=== PATIENT | male | born 1960 | race Caucasian/White ===

== ENCOUNTER 2017-10-16 19:31 | Emergency (ER) | payer OTHER ==
[~2017-10-16] VITALS: Ht 188 cm; Wt 86.6 kg
[~2017-10-16 19:31] MED LIST: ATIVAN0.5 MG PO; ATIVAN1 MG PO; FOLIC ACID1 MG PO; LEVAQUIN 500 M500 M2 PO; LORAZEPAM 1 MG T1 M1 PO; MAGNESIUM400 MG PO; MAGOX 400400 MG PO; NICODERM CQ1 EAC1 TRANSDERM; NICOTINE TRANSD21 M1 TRANSDERM; NOHOMEMEDICATIONS; OXYCODONE-ACET1 EACH PO; PEPCID20 MG PO; POTASSIUM20 PO; PRENATABS FA T1 EACH PO; PRENATAL PO; PRENATAL VITAM1 EAC5 PO; THIAMINE HCL100 MG PO; TYLENOL325 MG PO; VANCOMYCIN100 MG/ML PO; VITAMIN B-1100 M1 PO
[2017-10-16 20:07] LABS: URINE BILIRUBIN NEGATIVE (Negative); URINE BLOOD 1+ (Negative); URINE CLARITY CLEAR; URINE COLOR YELLOW; URINE GLUCOSE-RANDOM NEGATIVE (Negative); URINE KETONES 1+ (Negative); URINE LEUKOCYTES-REFLEX NEGATIVE (Negative); URINE NITRITE-REFLEX NEGATIVE (Negative); URINE PROTEIN 2+ (Negative); URINE SPECIFIC GRAVITY 1.025 (1.005-1.030)
[2017-10-16 20:23] LABS: AMP/METHAMP Negative (Negative); BARBITURATES Negative (Negative); BENZODIAZEPINES Negative (Negative); COCAINE Negative (Negative); METHADONE Negative (Negative); OPIATES Negative (Negative); PCP Negative (Negative); THC Negative (Negative)
[2017-10-16 20:28] LABS: ABSOLUTE BASOPHILS 0.1 thou/uL (0.0-0.2); ABSOLUTE LYMPHOCYTES 2.6 thou/uL (0.8-5.3); ABSOLUTE MONOCYTES 0.6 thou/uL (0.0-1.2); BASOPHILS 1.3 %; EOSINOPHILS 0.3 %; HEMATOCRIT 51.3 % (42.0-52.0); LYMPHOCYTES 22.7 %; MCH 27.5 pg (26.0-34.0); MCHC 33.1 g/dL (28.0-37.0); MCV 83.1 fL (80.0-100.0); MONOCYTES 5.4 %; MPV 8.1 fl. (7.2-11.1); NUCLEATED RBCS 0 /100WBC; PLATELET COUNT* 320 thou/uL (150-400); POLYS 70.3 %; RBC 6.17 mil/uL (4.50-6.00); RDW-CV 14.5 % (10.5-14.5); WBC 11.4 thou/uL (4.0-11.0)
[2017-10-16 20:28] LABS: CRYSTALS None Seen /LPF (None Seen); SQUAMOUS 4-10 Moderate /LPF (0-3); URINE RBC 0-2 Rare /HPF (0-2); URINE WBC-REFLEX 6-15 Few /HPF (0-5)
[2017-10-16 20:29] LABS: FINE GRANULAR CASTS 0-3 Few /LPF (None Seen); HYALINE CASTS 0-3 Few /LPF (None Seen)
[2017-10-16 20:52] LABS: CALCIUM 10.5 mg/dL (8.5-10.1); CREATININE 1.3 mg/dL (0.6-1.3); POTASSIUM 3.1 mmol/L (3.5-5.1)
[2017-10-16 20:59] LABS: ALBUMIN 4.9 g/dL (3.4-5.0); TOTAL BILIRUBIN 1.5 mg/dL (<0.1-1.0); TOTAL PROTEIN 9.4 g/dL (6.4-8.2)
[2017-10-16] MEDS ORDERED: PROMS25 WY RECTAL (23:56)
[2017-10-16] MEDS ORDERED: NEURONTIN 400400 M1 PO (23:56)
[2017-10-17] MEDS ORDERED: BACTRIM DS TAB1 EACH PO (00:41)
[2017-10-17 01:20] VITALS: BP 122/84
--- NOTE | 2017-10-17 19:33 | EKG ---
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: YOSHI : 1960 Requested By: Yoli Castillo Order Number: [id number] MD: Kirit Reyna Measurements Intervals [place] Rate: 76 P: 73 MO: 144 QRS: 55 QRSD: 91 T: 31 QT: 391 QTc: 440 Interpretive Statements Sinus rhythm Compared to ECG 02/15/2016 13:31:04 Sinus tachycardia no longer present Myocardial infarct finding no longer present Electronically Signed On 10-17-2017 19:33:01 CDT by Kirit Reyna [email or web address] <ELECTRONICALLY SIGNED> By: Kirit Reyna MD, [facility] 10/17/17 1933 26 26 Kirit Reyna MD, FACC /EPI
== END 2017-10-17 01:20 | disposition home or self-care (01) ==
LOC: M.ERS 19:31
PROVIDERS: Nurse Practitioner Family
DX: F10.239 Alcohol dependence with withdrawal, unspecified (principal); Y90.3 Blood alcohol level of 60-79 mg/100 ml; N39.0 Urinary tract infection, site not specified; F41.9 Anxiety disorder, unspecified; F32.9 Major depressive disorder, single episode, unspecified; M10.9 Gout, unspecified; F17.210 Nicotine dependence, cigarettes, uncomplicated; Z88.5 Allergy status to narcotic agent

== ENCOUNTER 2018-03-29 10:37 | Inpatient (IN) | payer OTHER ==
[~2018-03-29] VITALS: Ht 188 cm; Wt 87.5 kg
[~2018-03-29 10:37] MED LIST changes: +BACTRIM DS TAB1 EACH PO; +NEURONTIN 400400 M1 PO; +PROMS25 WY RECTAL
[2018-03-29 10:45] VITALS: BP 154/99
[2018-03-29 11:08] LABS: ABSOLUTE BASOPHILS 0.1 thou/uL (0.0-0.2); ABSOLUTE EOSINOPHILS 0.1 thou/uL (0.0-0.7); ABSOLUTE LYMPHOCYTES 1.3 thou/uL (0.8-5.3); ABSOLUTE MONOCYTES 0.8 thou/uL (0.0-1.2); ABSOLUTE NEUTROPHILS 3.5 thou/uL (1.6-8.1); BASOPHILS 1.3 %; HEMATOCRIT 47.2 % (42.0-52.0); LYMPHOCYTES 22.3 %; MCH 29.9 pg (26.0-34.0); MCHC 33.9 g/dL (28.0-37.0); MCV 88.2 fL (80.0-100.0); MONOCYTES 13.5 %; MPV 7.3 fl. (7.2-11.1); NUCLEATED RBCS 0 /100WBC; PLATELET COUNT* 170 thou/uL (150-400); POLYS 61.9 %; RBC 5.35 mil/uL (4.50-6.00); RDW-CV 14.3 % (10.5-14.5); WBC 5.6 thou/uL (4.0-11.0)
[2018-03-29 11:18] LABS: CALCIUM 8.6 mg/dL (8.5-10.1); CREATININE 0.8 mg/dL (0.6-1.3); POTASSIUM 3.1 mmol/L (3.5-5.1)
[2018-03-29 11:23] LABS: ALBUMIN 3.9 g/dL (3.4-5.0); TOTAL BILIRUBIN 0.8 mg/dL (<0.1-1.0); TOTAL PROTEIN 7.3 g/dL (6.4-8.2)
[2018-03-29 16:30] VITALS: BP 135/79
[2018-03-29 16:40] VITALS: BP 146/89
[2018-03-29 18:02] LABS: INR 1.1; PROTIME 11.3 Seconds (9.20-11.50)
[2018-03-29 18:11] LABS: PHOSPHORUS* 2.7 mg/dL (2.5-4.9)
[2018-03-29 18:12] LABS: MAGNESIUM 0.9 mg/dL (1.8-2.4)
[2018-03-29 19:25] LABS: URINE BILIRUBIN NEGATIVE (Negative); URINE BLOOD NEGATIVE (Negative); URINE CLARITY CLEAR; URINE COLOR YELLOW; URINE GLUCOSE-RANDOM NEGATIVE (Negative); URINE KETONES 1+ (Negative); URINE LEUKOCYTES-REFLEX NEGATIVE (Negative); URINE NITRITE-REFLEX NEGATIVE (Negative); URINE PROTEIN NEGATIVE (Negative); URINE SPECIFIC GRAVITY 1.015 (1.005-1.030); URINE UROBILINOGEN 0.2 E.U./dl (0.2-1.0)
[2018-03-29 19:30] LABS: AMP/METHAMP Negative (Negative); BARBITURATES Negative (Negative); BENZODIAZEPINES Negative (Negative); COCAINE Negative (Negative); METHADONE Negative (Negative); OPIATES Negative (Negative); PCP Negative (Negative); THC Negative (Negative)
[2018-03-29 20:00] VITALS: BP 126/77
[2018-03-30] VITALS: BP 129/86
[2018-03-30 04:00] VITALS: BP 132/91
[2018-03-30 06:09] LABS: MAGNESIUM 3.3 mg/dL (1.8-2.4); POTASSIUM 3.7 mmol/L (3.5-5.1)
[2018-03-30 08:00] VITALS: BP 135/93
[2018-03-30 12:23] VITALS: BP 129/87
[2018-03-30 15:19] VITALS: BP 123/86
[2018-03-30 20:00] VITALS: BP 135/84
[2018-03-31 00:10] VITALS: BP 137/91
[2018-03-31 04:36] VITALS: BP 131/87
[2018-03-31 06:10] LABS: CALCIUM 8.3 mg/dL (8.5-10.1); CREATININE 0.8 mg/dL (0.6-1.3); MAGNESIUM 2.1 mg/dL (1.8-2.4); PHOSPHORUS* 2.4 mg/dL (2.5-4.9); POTASSIUM 4.3 mmol/L (3.5-5.1)
[2018-03-31 08:29] VITALS: BP 108/68
[2018-03-31 11:21] VITALS: BP 126/71
[2018-03-31 15:30] VITALS: BP 118/80
[2018-03-31 20:05] VITALS: BP 121/87
[2018-04-01 04:00] VITALS: BP 144/83; BP 165/89
[2018-04-01 08:00] VITALS: BP 136/86
[2018-04-01 11:30] VITALS: BP 135/75
[2018-04-01 20:00] VITALS: BP 121/87
[2018-04-02 00:07] VITALS: BP 130/83
[2018-04-02] MEDS ORDERED: PRENATAL PO (08:53)
[2018-04-02] MEDS ORDERED: ATIVAN1 MG PO (08:53)
[2018-04-02 09:04] VITALS: BP 128/64
[2018-04-02 09:19] VITALS: BP 128/64
== END 2018-04-02 13:45 | disposition home or self-care (01) | DRG 897 ==
LOC: M.ERS 10:37 → M.2W 16:00 → M.TBA-ER 16:00 → M.2W 16:40 → M.ORTHSURG 04-01 21:35
PROVIDERS: Personal Emergency Response Attendant; ADMIT Internal Medicine
DX: F10.230 Alcohol dependence with withdrawal, uncomplicated (principal); F41.9 Anxiety disorder, unspecified; F32.9 Major depressive disorder, single episode, unspecified; M10.9 Gout, unspecified; F17.210 Nicotine dependence, cigarettes, uncomplicated; Z88.6 Allergy status to analgesic agent; Z80.0 Family history of malignant neoplasm of digestive organs; Z83.6 Family history of other diseases of the respiratory system; Z28.21 Immunization not carried out because of patient refusal

== ENCOUNTER 2018-04-26 14:02 | Inpatient (IN) | payer OTHER ==
[~2018-04-26] VITALS: Ht 188 cm; Wt 88.5 kg
[2018-04-26] VITALS (7 sets, daily range): BP systolic 122–155; BP diastolic 82–110
[2018-04-26] MEDS ORDERED: NOHOMEMEDICATIONS (14:21)
[2018-04-26 15:26] LABS: ABSOLUTE BASOPHILS 0.1 thou/uL (0.0-0.2); ABSOLUTE MONOCYTES 0.3 thou/uL (0.0-1.2); ABSOLUTE NEUTROPHILS 2.8 thou/uL (1.6-8.1); BASOPHILS 1.5 %; EOSINOPHILS 1.1 %; HEMATOCRIT 46.6 % (42.0-52.0); HEMOGLOBIN 15.9 gm/dL (14.0-18.0); LYMPHOCYTES 23.6 %; MCH 30.5 pg (26.0-34.0); MCHC 34.2 g/dL (28.0-37.0); MCV 89.3 fL (80.0-100.0); MONOCYTES 7.9 %; MPV 7.9 fl. (7.2-11.1); NUCLEATED RBCS 0 /100WBC; PLATELET COUNT* 72 thou/uL (150-400); POLYS 65.9 %; RBC 5.22 mil/uL (4.50-6.00); RDW-CV 14.6 % (10.5-14.5); WBC 4.3 thou/uL (4.0-11.0)
[2018-04-26 15:36] LABS: ANION GAP 12 mmol/L (7-16); BUN 10 mg/dL (7-18); CALCIUM 7.6 mg/dL (8.5-10.1); CHLORIDE 99 mmol/L (98-107); CO2 26 mmol/L (21-32); CREATININE 0.8 mg/dL (0.6-1.3); GLUCOSE 87 mg/dL (70-99); SODIUM 137 mmol/L (136-145)
[2018-04-26 15:37] LABS: POTASSIUM 2.7 mmol/L (3.5-5.1)
[2018-04-26 15:42] LABS: ALBUMIN 3.8 g/dL (3.4-5.0); ALKALINE PHOSPHATASE 70 U/L (46-116); LIPASE 259 U/L (73-393); SGOT 185 U/L (15-37); SGPT 171 U/L (30-65); TOTAL BILIRUBIN 1.6 mg/dL (<0.1-1.0); TOTAL PROTEIN 6.9 g/dL (6.4-8.2); TROPONIN-I LEVEL <0.06 ng/mL (<0.06)
[2018-04-26 17:04] LABS: ALCOHOL 188 mg/dL (<10)
[2018-04-26 17:05] LABS: ACETAMINOPHEN < 2 ug/mL (10-30)
[2018-04-26 18:11] LABS: URINE BILIRUBIN NEGATIVE (Negative); URINE BLOOD TRACE (Negative); URINE CLARITY CLEAR; URINE COLOR YELLOW; URINE GLUCOSE-RANDOM NEGATIVE (Negative); URINE KETONES 1+ (Negative); URINE LEUKOCYTES-REFLEX NEGATIVE (Negative); URINE NITRITE-REFLEX NEGATIVE (Negative); URINE PROTEIN TRACE (Negative)
[2018-04-26 18:20] LABS: AMP/METHAMP Negative (Negative); BARBITURATES Negative (Negative); BENZODIAZEPINES Negative (Negative); COCAINE Negative (Negative); METHADONE Negative (Negative); OPIATES Negative (Negative); PCP Negative (Negative); THC Negative (Negative)
[2018-04-26 22:59] LABS: INR 1.1
[2018-04-26 23:44] LABS: MAGNESIUM 0.9 mg/dL (1.8-2.4)
[2018-04-27] VITALS (17 sets, daily range): BP systolic 103–139; BP diastolic 62–95
[2018-04-27 05:10] LABS: ALBUMIN 3.1 g/dL (3.4-5.0); CREATININE 0.8 mg/dL (0.6-1.3); POTASSIUM 3.7 mmol/L (3.5-5.1); TOTAL BILIRUBIN 1.7 mg/dL (<0.1-1.0); TOTAL PROTEIN 5.9 g/dL (6.4-8.2)
--- NOTE | 2018-04-27 11:04 | EKG ---
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: Frank : 1960 Requested By: Olga Collado Order Number: [id number] MD: Silverio Martinez Measurements Intervals [place] Rate: 87 P: 62 DE: 148 QRS: 55 QRSD: 95 T: 57 QT: 385 QTc: 463 Interpretive Statements Sinus rhythm Compared to ECG 10/16/2017 20:27:26 No significant changes Electronically Signed On 04-27-2018 11:03:55 TRAVEL INFORMATION CENTER SUPERVISOR by Silverio Martinez [email or web address] <ELECTRONICALLY SIGNED> By: Silverio Martinez MD, [facility] 04/27/18 1103 1504 1504 Silverio Martinez MD, FACC /EPI
[2018-04-27 11:21] LABS: ABSOLUTE EOSINOPHILS 0.2 thou/uL (0.0-0.7); ABSOLUTE LYMPHOCYTES 1.3 thou/uL (0.8-5.3); ABSOLUTE MONOCYTES 0.5 thou/uL (0.0-1.2); ABSOLUTE NEUTROPHILS 4.8 thou/uL (1.6-8.1); BASOPHILS 0.5 %; EOSINOPHILS 2.7 %; HEMATOCRIT 43.8 % (42.0-52.0); HEMOGLOBIN 14.8 gm/dL (14.0-18.0); LYMPHOCYTES 18.6 %; MCH 30.1 pg (26.0-34.0); MCHC 33.8 g/dL (28.0-37.0); MCV 89.3 fL (80.0-100.0); MONOCYTES 7.6 %; MPV 8.8 fl. (7.2-11.1); NUCLEATED RBCS 0 /100WBC; POLYS 70.6 %; RBC 4.91 mil/uL (4.50-6.00); RDW-CV 14.6 % (10.5-14.5); WBC 6.8 thou/uL (4.0-11.0)
[2018-04-27 11:55] LABS: PLATELET COUNT* 49 thou/uL (150-400)
[2018-04-28] VITALS (16 sets, daily range): BP systolic 99–131; BP diastolic 54–93
[2018-04-28 03:11] LABS: ABSOLUTE EOSINOPHILS 0.2 thou/uL (0.0-0.7); ABSOLUTE LYMPHOCYTES 1.4 thou/uL (0.8-5.3); ABSOLUTE MONOCYTES 0.5 thou/uL (0.0-1.2); ABSOLUTE NEUTROPHILS 3.9 thou/uL (1.6-8.1); BASOPHILS 0.5 %; HEMATOCRIT 42.7 % (42.0-52.0); HEMOGLOBIN 14.4 gm/dL (14.0-18.0); LYMPHOCYTES 23.9 %; MCH 30.3 pg (26.0-34.0); MCHC 33.9 g/dL (28.0-37.0); MCV 89.4 fL (80.0-100.0); MPV 8.7 fl. (7.2-11.1); NUCLEATED RBCS 0 /100WBC; PLATELET COUNT* 50 thou/uL (150-400); POLYS 64.6 %; RBC 4.77 mil/uL (4.50-6.00); RDW-CV 14.7 % (10.5-14.5); WBC 6.1 thou/uL (4.0-11.0)
[2018-04-28 03:46] LABS: CALCIUM 7.1 mg/dL (8.5-10.1); CREATININE 0.7 mg/dL (0.6-1.3); MAGNESIUM 2.1 mg/dL (1.8-2.4); PHOSPHORUS* 1.7 mg/dL (2.5-4.9); POTASSIUM 3.1 mmol/L (3.5-5.1)
[2018-04-28] MEDS ORDERED: SYNTHROID75 MCG PO (22:57)
[2018-04-28] MEDS ORDERED: HYDROCODONE-ACE15 ML PO (22:58)
[2018-04-28] MEDS ORDERED: ADVAIR HFA 230M12 GM INH ×2 (22:58→22:59)
[2018-04-28] MEDS ORDERED: CARDIZEM CD120 MG PO (23:00)
[2018-04-28] MEDS ORDERED: CALCIUM 600 +1 EA11 PO (23:00)
[2018-04-28] MEDS ORDERED: ZANTAC 150MG T150 MG PO (23:01)
[2018-04-28] MEDS ORDERED: LIPITOR 20 MG T20 M1 PO (23:01)
[2018-04-28] MEDS ORDERED: COUMADIN 3 MG TA3 M1 PO (23:03)
[2018-04-28] MEDS ORDERED: CALCITONIN-SAL3.7 ML NASAL (23:03)
[2018-04-28] MEDS ORDERED: FENTANYL PATCH75 MCG TRANSDERM (23:05)
[2018-04-28] MEDS ORDERED: ARICEPT 5 MG TAB5 MG PO (23:06)
[2018-04-29 03:48] VITALS: BP 119/75
[2018-04-29 04:08] LABS: ABSOLUTE BASOPHILS 0.1 thou/uL (0.0-0.2); ABSOLUTE EOSINOPHILS 0.2 thou/uL (0.0-0.7); ABSOLUTE LYMPHOCYTES 1.6 thou/uL (0.8-5.3); ABSOLUTE MONOCYTES 0.4 thou/uL (0.0-1.2); ABSOLUTE NEUTROPHILS 3.1 thou/uL (1.6-8.1); EOSINOPHILS 3.2 %; HEMATOCRIT 42.8 % (42.0-52.0); HEMOGLOBIN 14.6 gm/dL (14.0-18.0); LYMPHOCYTES 29.5 %; MCH 30.8 pg (26.0-34.0); MCHC 34.2 g/dL (28.0-37.0); MPV 9.2 fl. (7.2-11.1); NUCLEATED RBCS 0 /100WBC; PLATELET COUNT* 60 thou/uL (150-400); POLYS 58.3 %; RBC 4.76 mil/uL (4.50-6.00); RDW-CV 14.2 % (10.5-14.5); WBC 5.4 thou/uL (4.0-11.0)
[2018-04-29 04:31] LABS: ALBUMIN 3.1 g/dL (3.4-5.0); CALCIUM 7.8 mg/dL (8.5-10.1); CREATININE 0.6 mg/dL (0.6-1.3); MAGNESIUM 1.6 mg/dL (1.8-2.4); POTASSIUM 3.7 mmol/L (3.5-5.1); TOTAL BILIRUBIN 1.5 mg/dL (<0.1-1.0); TOTAL PROTEIN 6.4 g/dL (6.4-8.2)
[2018-04-29 08:00] VITALS: BP 116/64
[2018-04-29 09:51] VITALS: BP 116/64
== END 2018-04-29 11:15 | disposition home or self-care (01) | DRG 641 ==
LOC: M.ERS 14:02 → M.TBA-ER 16:02 → M.ICU 16:02
PROVIDERS: Physician Assistant; ADMIT Internal Medicine
DX: E87.6 Hypokalemia (principal); F10.231 Alcohol dependence with withdrawal delirium; E87.1 Hypo-osmolality and hyponatremia; F32.9 Major depressive disorder, single episode, unspecified; F41.9 Anxiety disorder, unspecified; M10.9 Gout, unspecified; F17.210 Nicotine dependence, cigarettes, uncomplicated; S30.1XXA Contusion of abdominal wall, initial encounter; X58.XXXA Exposure to other specified factors, initial encounter; K21.9 Gastro-esophageal reflux disease without esophagitis; Y93.89 Activity, other specified; Y92.89 Other specified places as the place of occurrence of the external cause; Y99.8 Other external cause status; Z79.899 Other long term (current) drug therapy; Z88.5 Allergy status to narcotic agent; Z82.5 Family history of asthma and other chronic lower respiratory diseases; Z80.0 Family history of malignant neoplasm of digestive organs

== ENCOUNTER 2018-05-08 10:48 | Inpatient (IN) | payer OTHER ==
[~2018-05-08] VITALS: Ht 188 cm; Wt 87.5 kg
[~2018-05-08 10:48] MED LIST changes: +ADVAIR HFA 230M12 GM INH; +ARICEPT 5 MG TAB5 MG PO; +CALCITONIN-SAL3.7 ML NASAL; +CALCIUM 600 +1 EA11 PO; +CARDIZEM CD120 MG PO; +COUMADIN 3 MG TA3 M1 PO; +FENTANYL PATCH75 MCG TRANSDERM; +HYDROCODONE-ACE15 ML PO; +LIPITOR 20 MG T20 M1 PO; +SYNTHROID75 MCG PO; +ZANTAC 150MG T150 MG PO
[2018-05-08 10:59] VITALS: BP 143/92
[2018-05-08 11:22] LABS: HEMATOCRIT 44.4 % (42.0-52.0); HEMOGLOBIN 15.2 gm/dL (14.0-18.0); MCH 30.8 pg (26.0-34.0); MCHC 34.2 g/dL (28.0-37.0); NUCLEATED RBCS 0 /100WBC; PLATELET COUNT* 333 thou/uL (150-400); RBC 4.93 mil/uL (4.50-6.00); RDW-CV 15.1 % (10.5-14.5); URINE BILIRUBIN NEGATIVE (Negative); URINE BLOOD NEGATIVE (Negative); URINE CLARITY CLEAR; URINE COLOR YELLOW; URINE GLUCOSE-RANDOM NEGATIVE (Negative); URINE KETONES NEGATIVE (Negative); URINE LEUKOCYTES-REFLEX NEGATIVE (Negative); URINE NITRITE-REFLEX NEGATIVE (Negative); URINE PROTEIN NEGATIVE (Negative); URINE UROBILINOGEN 0.2 E.U./dl (0.2-1.0)
[2018-05-08 11:31] LABS: ANION GAP 10 mmol/L (7-16); BUN 8 mg/dL (7-18); CALCIUM 8.9 mg/dL (8.5-10.1); CHLORIDE 104 mmol/L (98-107); CO2 29 mmol/L (21-32); CREATININE 0.8 mg/dL (0.6-1.3); GLUCOSE 172 mg/dL (70-99); SODIUM 143 mmol/L (136-145)
[2018-05-08 11:39] LABS: AMP/METHAMP Negative (Negative); BARBITURATES Negative (Negative); BENZODIAZEPINES Negative (Negative); COCAINE Negative (Negative); METHADONE Negative (Negative); OPIATES Negative (Negative); PCP Negative (Negative); THC Negative (Negative)
[2018-05-08 11:41] LABS: ABSOLUTE BASOPHILS 0.1 thou/uL (0.0-0.2); ABSOLUTE EOSINOPHILS 0.2 thou/uL (0.0-0.7); ABSOLUTE LYMPHOCYTES 2.3 thou/uL (0.8-5.3); ABSOLUTE MONOCYTES 0.5 thou/uL (0.0-1.2); ABSOLUTE NEUTROPHILS 1.9 thou/uL (1.6-8.1); ALBUMIN 3.4 g/dL (3.4-5.0); ALKALINE PHOSPHATASE 75 U/L (46-116); LIPASE 275 U/L (73-393); MAGNESIUM 1.1 mg/dL (1.8-2.4); PLATELET ESTIMATE ADEQUATE; SGOT 152 U/L (15-37); SGPT 233 U/L (30-65); TOTAL BILIRUBIN 0.4 mg/dL (<0.1-1.0); TROPONIN-I LEVEL <0.06 ng/mL (<0.06)
[2018-05-08 11:42] LABS: ACETAMINOPHEN < 2 ug/mL (10-30); ALCOHOL 203 mg/dL (<10); SALICYLATE < 2.8 mg/dL (2.8-20.0)
--- NOTE | 2018-05-08 15:03 | EKG ---
[place] [address] ELECTROCARDIOGRAM REPORT Name: CHRISTIANO OREILLY Room: [place] [address] ADM IN M.R.#: [id number] Admission: 05/08/18 Attend Phys: Brett Jiang Discharge: Date of : 64 Report #: [id number] THIS REPORT FOR: //name// [facility] ED Test Date: 2018-05-08 Test Time: 11:06:59 Pat Name: CHRISTIANO OREILLY Department: Room: [facility] Gender: M Vp Global: VIC : 1960 Requested By: Hunter Mosqueda Order Number: [id number] MD: Silverio Martinez Measurements Intervals [place] Rate: 92 P: 66 HI: 142 QRS: 27 QRSD: 93 T: 25 QT: 360 QTc: 446 Interpretive Statements Sinus rhythm Abnormal R-wave progression, early transition Baseline wander in lead(s) V4 Compared to ECG 04/26/2018 15:04:31 No significant changes Electronically Signed On 05-08-2018 15:03:21 FARM PRODUCT PURCHASER by Silverio Martinez [email or web address] <ELECTRONICALLY SIGNED> By: Silverio Martinez MD, FAC 05/08/18 1503 1106 1106 Silverio Martinez MD, [facility] /EPI
[2018-05-08 15:04] VITALS: BP 115/85
[2018-05-08 15:07] VITALS: BP 146/96
[2018-05-08 19:05] VITALS: BP 142/95
[2018-05-09] VITALS: BP 135/85
[2018-05-09 04:00] VITALS: BP 122/80
[2018-05-09 08:00] VITALS: BP 114/71
[2018-05-09 12:25] VITALS: BP 133/87
[2018-05-09 17:23] VITALS: BP 127/90
[2018-05-09 20:00] VITALS: BP 128/88
[2018-05-10] VITALS: BP 123/84
[2018-05-10 04:01] VITALS: BP 150/93
[2018-05-10 04:42] LABS: CALCIUM 8.4 mg/dL (8.5-10.1); CREATININE 0.8 mg/dL (0.6-1.3); MAGNESIUM 2.2 mg/dL (1.8-2.4); PHOSPHORUS* 2.2 mg/dL (2.5-4.9); POTASSIUM 3.9 mmol/L (3.5-5.1)
[2018-05-10 08:39] VITALS: BP 126/88
[2018-05-10 12:00] VITALS: BP 149/86
[2018-05-10 16:00] VITALS: BP 135/87
[2018-05-10 20:00] VITALS: BP 106/84
[2018-05-11] VITALS: BP 118/81
[2018-05-11 04:00] VITALS: BP 116/78
[2018-05-11 05:20] LABS: HEMATOCRIT 44.5 % (42.0-52.0); HEMOGLOBIN 14.9 gm/dL (14.0-18.0); MCH 30.5 pg (26.0-34.0); MCHC 33.6 g/dL (28.0-37.0); MPV 7.9 fl. (7.2-11.1); RBC 4.89 mil/uL (4.50-6.00); RDW-CV 14.8 % (10.5-14.5); WBC 8.6 thou/uL (4.0-11.0)
[2018-05-11 05:27] LABS: CALCIUM 8.2 mg/dL (8.5-10.1); CREATININE 0.8 mg/dL (0.6-1.3); MAGNESIUM 1.8 mg/dL (1.8-2.4); POTASSIUM 4.1 mmol/L (3.5-5.1)
[2018-05-11 08:17] VITALS: BP 101/78
[2018-05-11 11:30] VITALS: BP 110/74
[2018-05-11 17:22] VITALS: BP 109/77
[2018-05-11 19:30] VITALS: BP 129/77
[2018-05-12] VITALS: BP 103/69
[2018-05-12 04:00] VITALS: BP 129/83
[2018-05-12 08:00] VITALS: BP 139/92
[2018-05-12 11:52] VITALS: BP 139/83
[2018-05-12 15:46] VITALS: BP 126/79
[2018-05-12 19:30] VITALS: BP 117/79
[2018-05-13] VITALS: BP 111/84
[2018-05-13 04:00] VITALS: BP 112/72
[2018-05-13 08:28] VITALS: BP 121/70
[2018-05-13] MEDS ORDERED: UNICOMPLEX M TA1 TA1 PO (11:43)
[2018-05-13 11:44] VITALS: BP 121/70
[2018-05-13 11:49] VITALS: BP 121/70
== END 2018-05-13 12:00 | disposition home or self-care (01) | DRG 897 ==
LOC: M.ERS 10:48 → M.TBA-ER 11:57 → M.2W 11:57
PROVIDERS: Emergency Medicine; Internal Medicine; ADMIT Internal Medicine
DX: F10.239 Alcohol dependence with withdrawal, unspecified (principal); R45.851 Suicidal ideations; F32.9 Major depressive disorder, single episode, unspecified; F41.9 Anxiety disorder, unspecified; E83.42 Hypomagnesemia; E87.8 Other disorders of electrolyte and fluid balance, not elsewhere classified; R05 Cough; F17.210 Nicotine dependence, cigarettes, uncomplicated; E87.6 Hypokalemia; Y90.9 Presence of alcohol in blood, level not specified; M10.9 Gout, unspecified; Z88.5 Allergy status to narcotic agent; Z80.9 Family history of malignant neoplasm, unspecified; Z83.6 Family history of other diseases of the respiratory system

== ENCOUNTER 2018-09-19 19:20 | Inpatient (IN) | payer OTHER ==
[~2018-09-19] VITALS: Ht 188 cm; Wt 93.0 kg
[~2018-09-19 19:20] MED LIST changes: +UNICOMPLEX M TA1 TA1 PO
[2018-09-19 19:22] VITALS: BP 141/85
[2018-09-19 19:51] LABS: ABSOLUTE BASOPHILS 0.1 thou/uL (0.0-0.2); ABSOLUTE LYMPHOCYTES 1.4 thou/uL (0.8-5.3); ABSOLUTE MONOCYTES 0.6 thou/uL (0.0-1.2); ABSOLUTE NEUTROPHILS 9.8 thou/uL (1.6-8.1); BASOPHILS 0.9 %; EOSINOPHILS 0.2 %; HEMATOCRIT 42.6 % (42.0-52.0); HEMOGLOBIN 14.2 gm/dL (14.0-18.0); LYMPHOCYTES 11.8 %; MCH 27.9 pg (26.0-34.0); MCHC 33.4 g/dL (28.0-37.0); MCV 83.7 fL (80.0-100.0); MONOCYTES 5.1 %; MPV 7.6 fl. (7.2-11.1); NUCLEATED RBCS 0 /100WBC; PLATELET COUNT* 189 thou/uL (150-400); RBC 5.09 mil/uL (4.50-6.00); RDW-CV 14.1 % (10.5-14.5); WBC 11.9 thou/uL (4.0-11.0)
[2018-09-19 20:06] LABS: CALCIUM 8.8 mg/dL (8.5-10.1); CREATININE 1.6 mg/dL (0.6-1.3); POTASSIUM 3.2 mmol/L (3.5-5.1)
[2018-09-19 20:09] LABS: ALBUMIN 3.9 g/dL (3.4-5.0); TOTAL BILIRUBIN 1.6 mg/dL (<0.1-1.0); TOTAL PROTEIN 7.5 g/dL (6.4-8.2)
[2018-09-19 21:52] VITALS: BP 140/92
[2018-09-19 22:08] VITALS: BP 136/87
[2018-09-19 22:30] VITALS: BP 130/85
[2018-09-19 23:00] VITALS: BP 136/96
[2018-09-19 23:14] LABS: INR 1.2; PROTIME 11.8 Seconds (9.20-11.50)
[2018-09-19 23:30] VITALS: BP 131/82
[2018-09-20] VITALS (15 sets, daily range): BP systolic 99–136; BP diastolic 55–86
[2018-09-20 04:30] LABS: CALCIUM 7.8 mg/dL (8.5-10.1); CREATININE 0.9 mg/dL (0.6-1.3); MAGNESIUM 2.1 mg/dL (1.8-2.4); PHOSPHORUS* 2.7 mg/dL (2.5-4.9); POTASSIUM 3.1 mmol/L (3.5-5.1)
--- NOTE | 2018-09-20 04:45 | NUR ---
RECIEVED PT FROM ER.ON RA,ALERT ORIENTED AND WITH CIWA OF 5.PT SLEPT WELL WITH NO SIEZURE NOTED.CONTINUE MONITORING AND TOWARDS GOAL.
--- NOTE | 2018-09-20 14:00 | NUR ---
VSS, ASSUMED CARE IN THE AM, ASSESSMENT PERFORMED AND CHARTED, FALL PRECAUTIONS IN PLACE AND CALL LIGHT IN REACH, PT IS A&O4 AND ON 1L NC, PT O2 SAT DROPS WHILE SLEEPING, PT IS UP WITH STAND BY ASSIST, IS TRACING SR ON THE MONITOR, DENIES ANY PAIN, PT HAS BEEN SLEEPING AT DAY, HE COMPLETE CT OF HEAD, WILL FOLLOW WITH PLAN OF CARE,
[2018-09-21] VITALS (22 sets, daily range): BP systolic 94–127; BP diastolic 48–86
[2018-09-21 04:15] LABS: HEMATOCRIT 41.3 % (42.0-52.0); HEMOGLOBIN 13.6 gm/dL (14.0-18.0); MCH 28.3 pg (26.0-34.0); MCHC 33.1 g/dL (28.0-37.0); MCV 85.7 fL (80.0-100.0); MPV 8.2 fl. (7.2-11.1); RBC 4.82 mil/uL (4.50-6.00); RDW-CV 14.2 % (10.5-14.5); WBC 8.8 thou/uL (4.0-11.0)
[2018-09-21 04:29] LABS: ALBUMIN 3.1 g/dL (3.4-5.0); CALCIUM 7.3 mg/dL (8.5-10.1); CREATININE 0.7 mg/dL (0.6-1.3); PHOSPHORUS* 2.1 mg/dL (2.5-4.9); POTASSIUM 3.7 mmol/L (3.5-5.1); TOTAL PROTEIN 6.3 g/dL (6.4-8.2)
--- NOTE | 2018-09-21 05:27 | NUR ---
ASSUMED PATIENT CARE AT 1900. PATIENT ALERT AND ORIENTED TIMES FOUR. NO COMPLAINTS OF PAIN OR DISCOMFORT NOTED THROUGH THE NIGHT. NO SEIZURE ACTIVITY. PATIENT ABLE TO AMBULATE INDEPENDENTLY TO THE C. VITAL SIGNS REMAIN STABLE. RN ASSESSMENTS COMPLETED CHARTED.
[2018-09-21 09:04] LABS: AMP/METHAMP Negative (Negative); BARBITURATES Negative (Negative); COCAINE Negative (Negative); METHADONE Negative (Negative); OPIATES Negative (Negative); PCP Negative (Negative); THC Negative (Negative)
[2018-09-21 09:05] LABS: URINE BILIRUBIN NEGATIVE (Negative); URINE BLOOD NEGATIVE (Negative); URINE CLARITY CLEAR; URINE COLOR YELLOW; URINE GLUCOSE-RANDOM NEGATIVE (Negative); URINE KETONES NEGATIVE (Negative); URINE LEUKOCYTES 1+ (Negative); URINE NITRITE NEGATIVE (Negative); URINE PROTEIN NEGATIVE (Negative); URINE SPECIFIC GRAVITY 1.015 (1.005-1.030); URINE UROBILINOGEN 0.2 E.U./dl (0.2-1.0)
[2018-09-21 09:28] LABS: BENZODIAZEPINES Negative (Negative)
[2018-09-21 09:33] LABS: SQUAMOUS 0-3 Few /LPF (0-3)
[2018-09-21 09:34] LABS: URINE RBC None Seen /HPF (0-2); URINE WBC >25 Many /HPF (0-5)
[2018-09-21 09:35] LABS: CASTS None Seen /LPF (None Seen); CRYSTALS None Seen /LPF (None Seen); MUCUS 4-6 Moderate strn/LPF (None Seen)
--- NOTE | 2018-09-21 09:59 | NUR ---
6228 ASSUMED CARE OF PATIENT. PLEASE SEE DOCUMENTED ASSESSMENT AND CIWA CHARTING
--- NOTE | 2018-09-21 11:00 | NUR ---
UNABLE TO KEEP PT AWAKE TO COMPLETE ASSESSMENT, WILL SEE AT A LATER TIME.
--- NOTE | 2018-09-21 13:47 | EKG ---
[place] [address] ELECTROCARDIOGRAM REPORT Name: CHRISTIANO OREILLY Room: [address] ADM IN M.R.#: [id number] Admission: 09/19/18 Attend Phys: Aram Lucero MD Discharge: Date of : 64 Report #: [id number] THIS REPORT FOR: //name// [facility] ED Test Date: 2018-09-19 Test Time: 19:31:15 Pat Name: CHRISTIANO OREILLY Department: Room: [address] Gender: M Multiple Slide Operator: SC : 1960 Requested By: Shira Landa Order Number: [id number] MD: Álvaro Trejo Measurements Intervals [place] Rate: 110 P: 53 WA: 147 QRS: 42 QRSD: 90 T: 31 QT: 353 QTc: 478 Interpretive Statements Sinus tachycardia Ventricular premature complex Abnormal R-wave progression, early transition Borderline prolonged QT interval Compared to ECG 05/08/2018 11:06:59 Ventricular premature complex(es) now present Sinus rate has increased Electronically Signed On 09-21-2018 13:46:55 CDT by Álvaro Trejo [email or web address] <ELECTRONICALLY SIGNED> By: Álvaro Trejo MD, [facility] 09/21/18 1346 30 30 Álvaro Trejo MD, [facility] /EPI
--- NOTE | 2018-09-21 18:06 | NUR ---
SOME PROGRESSION TOWARDS GOALS. PT IS NOW TELEMETRY STATUS ALTHOUGH HE WANTS TO LEAVE HE HAS "A BUSINESS TO START." IVF NOW COMPLETED. UP TO BSC INDEPENDENTLY. PT IS TELE STATUS. NO SEIZURE ACTIVITY. EEG DONE. NIECE AND MOTHER VISITED.
[2018-09-22] VITALS (7 sets, daily range): BP systolic 96–114; BP diastolic 52–78
[2018-09-22 04:09] LABS: HEMATOCRIT 43.6 % (42.0-52.0); HEMOGLOBIN 14.4 gm/dL (14.0-18.0); MCH 28.2 pg (26.0-34.0); MCHC 33.1 g/dL (28.0-37.0); MCV 85.2 fL (80.0-100.0); MPV 8.3 fl. (7.2-11.1); RBC 5.11 mil/uL (4.50-6.00); WBC 8.2 thou/uL (4.0-11.0)
[2018-09-22 04:30] LABS: ALBUMIN 3.1 g/dL (3.4-5.0); CALCIUM 8.1 mg/dL (8.5-10.1); CREATININE 0.8 mg/dL (0.6-1.3); MAGNESIUM 1.8 mg/dL (1.8-2.4); PHOSPHORUS* 2.9 mg/dL (2.5-4.9); POTASSIUM 3.9 mmol/L (3.5-5.1)
--- NOTE | 2018-09-22 05:52 | NUR ---
ASSUMED CARE AT 1900H.PT ON ROOM AIR AND TOLERATED.PT EXPRESS DESIRE TO GO HOME AND FOR DISCHARGE TODAY.NO DISTRESS,TREMORS AND AGITATION NOTED.CONTINUE MONITORING AND TOWARDS GOAL.
[2018-09-22] MEDS ORDERED: PRENATAL PO (08:36)
--- NOTE | 2018-09-22 10:22 | NUR ---
09/22: Patient discharged home. Instructions given, discussed again he is not to drive 6 months. Left with mother via private vehicle.
--- NOTE | 2018-09-22 14:58 | NUR ---
ORDERS RECEIVED, HOWEVER PATIENT DC'ED BEFORE P.T. ASSESSMENT. MARCELLO MOISE, MPT
--- NOTE | 2018-09-25 12:29 | EEG ---
[facility] [address] [place] [address] EEG STUDY REPORT Name: OREILLYCHRISTIANO Lazarus Room: [address] IN M.R.#: [id number] Admission: 09/19/18 Attend Phys: Aram Lucero MD Discharge: 09/22/18 Date of : 64 Report #: [id number] THIS REPORT FOR: //name// CC: FAM physician/PCP Aram Lucero DATE OF SERVICE: 09/21/2018 This patient is being evaluated for seizures. The patient's EEG was done by placing the electrode by standard 10-20 system of electrode placement. Both referential and sequential montages were used for recording. Background activity is about 11 Hz and 50-60 microvolt. This is a very well formed background activity. Moderate amount of eye movement artifact is present. The patient became drowsy and that is associated with bilateral slowing and vertex sharp waves. Photic stimulation was unremarkable. Throughout the record, no active epileptiform activity was noticed. IMPRESSION: This patient's EEG is within normal limits. Thank you very much for this referral. <ELECTRONICALLY SIGNED> By: Redd Lorenzo MD 09/25/18 1229 0835 [id number] Lorenzo MD /nt
--- NOTE | 2018-09-25 18:03 | CON ---
[address] [address] CONSULTATION Name: CHRISTIANO OREILLY Room: [address] IN [facility]#: [id number] Admission: 09/19/18 Attend Phys: Aram Lucero MD Discharge: 09/22/18 Date of : 64 Report #: [id number] THIS REPORT FOR: //name// CC: [facility] physician/PCP Aram Lucero NEUROLOGY CONSULTATION HISTORY OF PRESENT ILLNESS: The patient is a 58-year-old male who has had an alcohol withdrawal seizure. The patient stopped drinking approximately 2 days ago and is usually heavy drinker. He drinks a pint of whiskey a day. The patient had a similar event in 03/2018. This was also related to alcohol. PAST MEDICAL HISTORY: Depression, anxiety, alcoholism and gout. PAST SURGICAL HISTORY: Tonsillectomy and finger surgery. MEDICATIONS: None. ALLERGIES: CODEINE. PHYSICAL EXAMINATION: VITAL SIGNS: Temperature 36.7, pulse rate 85, respiratory rate 18, blood pressure 125/86 and bedside pulse oximetry 94% on room air. NEUROLOGIC: Cranial nerves 2-12 are grossly intact. Motor exam demonstrates symmetrical strength in all 4 extremities with tone and bulk normal. Reflexes are symmetrical. Plantar responses are flexor. Coordination demonstrates no evidence of dysmetria. Gait cannot be tested. LABORATORY DATA: Hematology: White blood cell count 11.9, hemoglobin 14.2, hematocrit 42.8 and platelet count 189,000. Chemistry: Sodium 141, potassium 3.1, chloride 105, carbon dioxide 28, BUN 12 and creatinine 0.9. Liver functions normal. Total bilirubin 1.6 and direct bilirubin 0.3. IMPRESSION: This patient has had 2 alcohol withdrawal seizures. I see in March that he had a CT scan of the head, this was not repeated. However, Dr. Sánchez has now ordered a CT scan of the head. At this point, I would not recommend antiepileptic medication given the history. I doubt that an electroencephalogram will be of any benefit as both of these seizures occurred with the withdrawal of alcohol. Perhaps case management can be consulted to see if there is something that can be done for this patient if he is willing [place] [address] CONSULTATION Name: CHRISTIANO OREILLY Room: [address] IN ..#: [id number] Admission: 09/19/18 Attend Phys: Aram Lucero MD Discharge: 09/22/18 Date of : 64 Report #: [id number] Thank you for your kind referral of the patient. <ELECTRONICALLY SIGNED> By: Ronit Boone DO 09/25/18 1803 1124 [id number] Boone DO /nt
== END 2018-09-22 10:10 | disposition home or self-care (01) | DRG 101 ==
LOC: M.ERS 19:20 → M.TBA-ER 20:23 → M.ICU 20:23
PROVIDERS: Emergency Medicine; Internal Medicine; ADMIT Internal Medicine
DX: R56.9 Unspecified convulsions (principal); F10.230 Alcohol dependence with withdrawal, uncomplicated; F41.9 Anxiety disorder, unspecified; F32.9 Major depressive disorder, single episode, unspecified; M10.9 Gout, unspecified; F17.210 Nicotine dependence, cigarettes, uncomplicated; Z87.820 Personal history of traumatic brain injury; Z79.899 Other long term (current) drug therapy; Z88.5 Allergy status to narcotic agent; Z80.0 Family history of malignant neoplasm of digestive organs; Z82.5 Family history of asthma and other chronic lower respiratory diseases

== ENCOUNTER 2018-11-01 05:30 | Inpatient (IN) | payer OTHER ==
[2018-11-01] VITALS (15 sets, daily range): BP systolic 118–166; BP diastolic 73–116
[~2018-11-01] VITALS: Ht 188 cm; Wt 90.9 kg
[2018-11-01 06:21] LABS: ABSOLUTE EOSINOPHILS 0.2 thou/uL (0.0-0.7); ABSOLUTE LYMPHOCYTES 1.8 thou/uL (0.8-5.3); ABSOLUTE MONOCYTES 0.4 thou/uL (0.0-1.2); ABSOLUTE NEUTROPHILS 2.2 thou/uL (1.6-8.1); BASOPHILS 0.1 %; EOSINOPHILS 4.1 %; HEMATOCRIT 45.4 % (42.0-52.0); HEMOGLOBIN 15.5 gm/dL (14.0-18.0); LYMPHOCYTES 39.9 %; MCH 29.1 pg (26.0-34.0); MCHC 34.1 g/dL (28.0-37.0); MCV 85.2 fL (80.0-100.0); MONOCYTES 8.4 %; MPV 7.7 fl. (7.2-11.1); NUCLEATED RBCS 0 /100WBC; PLATELET COUNT* 105 thou/uL (150-400); POLYS 47.5 %; RBC 5.33 mil/uL (4.50-6.00); RDW-CV 16.7 % (10.5-14.5); WBC 4.6 thou/uL (4.0-11.0)
[2018-11-01 06:26] LABS: ANION GAP 14 mmol/L (7-16); BUN 8 mg/dL (7-18); CALCIUM 8.5 mg/dL (8.5-10.1); CHLORIDE 98 mmol/L (98-107); CO2 27 mmol/L (21-32); CREATININE 0.8 mg/dL (0.6-1.3); GLUCOSE 132 mg/dL (70-99); SODIUM 139 mmol/L (136-145)
[2018-11-01 06:35] LABS: ALBUMIN 4.1 g/dL (3.4-5.0); ALKALINE PHOSPHATASE 65 U/L (46-116); PHOSPHORUS* 2.7 mg/dL (2.5-4.9); SGOT 120 U/L (15-37); SGPT 105 U/L (30-65); TOTAL BILIRUBIN 0.7 mg/dL (<0.1-1.0); TOTAL PROTEIN 7.6 g/dL (6.4-8.2); TROPONIN-I LEVEL <0.06 ng/mL (<0.06)
--- NOTE | 2018-11-01 10:09 | EKG ---
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 : 1960 Requested By: Shira Landa Order Number: [id number] MD: Silverio Martinez Measurements Intervals [place] Rate: 83 P: 63 [place]: 163 QRS: 46 QRSD: 91 T: 49 QT: 373 QTc: 439 Interpretive Statements Sinus rhythm Compared to ECG 09/19/2018 19:31:15 Sinus tachycardia no longer present Ventricular premature complex(es) no longer present Electronically Signed On 11-01-2018 10:09:29 CDT by Silverio Martniez [email or web address] <ELECTRONICALLY SIGNED> By: Silverio Martinez MD, [facility] 11/01/18 1009 3 3 Silverio Martinez MD, [facility] /EPI
[2018-11-01 16:16] LABS: MAGNESIUM 1.4 mg/dL (1.8-2.4)
[2018-11-02] VITALS (15 sets, daily range): BP systolic 107–141; BP diastolic 65–92
[2018-11-02 04:10] LABS: CALCIUM 7.4 mg/dL (8.5-10.1); CREATININE 0.7 mg/dL (0.6-1.3); PHOSPHORUS* 1.8 mg/dL (2.5-4.9)
[2018-11-02 04:18] LABS: POTASSIUM 4.1 mmol/L (3.5-5.1)
--- NOTE | 2018-11-02 05:27 | NUR ---
VITALS STABLE, AFEBRILE. CIWA 7-10. PLACED ON SEIZURE PRECAUTIONS. PATIENT TEARFUL AND QUIET. ABLE TO USE COMMODE, UNSTEADY ON FEET. BMX2, UOP 800 CC. ELECTROLYTES REPLACED PER PROTOCOL. PATIENT SLEPT THROUGH MOST OF THE NIGHT. CALL LIGHT WITHIN REACH.
--- NOTE | 2018-11-02 12:37 | NUR ---
ATTEMPTED TO MEET WITH PT, HE ASKED THAT CM COME BACK. WAS AGREEABLE TO HAVE CM LEAVE [facility] [place] [facility] AT BEDSIDE
[2018-11-03] VITALS: BP 115/69
[2018-11-03 04:01] VITALS: BP 138/96
[2018-11-03 08:00] VITALS: BP 129/93
[2018-11-03 11:30] VITALS: BP 129/90
--- NOTE | 2018-11-03 12:00 | NUR ---
ASSUMED PT CARE AT 0800, AOX4, SBA, O2 SAT 90'S RA. TRACING SR ON TELE. DENIES PAIN. PT FEELS SHAKY, AND HAVING DRY HEAVING. MEDS GIVEN. CIWA SCORED 5. VSS, AM ASSESSMENT CHARTED. MEDS GIVEN PER MAR. CALL LIGHT WITHIN REACH. WILL CONTINUE TO MONITOR
--- NOTE | 2018-11-03 15:35 | NUR ---
Pt is A&O. Resides at home with his mom, Pt states that he is looking for his own place, but plans to return to his mom's at dc. CM informed Pt that he will likely dc tomorrow, Pt in agreement. Pt is independent. No DME. No hx of HH or SNF. Community resources provided.
--- NOTE | 2018-11-03 15:38 | NUR ---
PT REFUSED P.T. STATED THAT HE HAS NO DIFFICULTY GETTING UP AND WALKING. DOESN'T WANT P.T. PROVIDED. PLANS ON GOING HOME TOMMORROW. WILL DC FROM [facility]. MARCELLO MOISE, MPT
[2018-11-03 16:03] VITALS: BP 133/89
[2018-11-03 23:45] VITALS: BP 117/80
[2018-11-04 04:19] VITALS: BP 108/70
[2018-11-04 04:24] LABS: HEMATOCRIT 45.4 % (42.0-52.0); HEMOGLOBIN 15.1 gm/dL (14.0-18.0); MCH 28.8 pg (26.0-34.0); MCHC 33.3 g/dL (28.0-37.0); MCV 86.5 fL (80.0-100.0); MPV 8.5 fl. (7.2-11.1); RBC 5.24 mil/uL (4.50-6.00); RDW-CV 16.6 % (10.5-14.5); WBC 5.6 thou/uL (4.0-11.0)
[2018-11-04 04:37] LABS: ALBUMIN 3.5 g/dL (3.4-5.0); CALCIUM 7.8 mg/dL (8.5-10.1); CREATININE 0.7 mg/dL (0.6-1.3); MAGNESIUM 1.3 mg/dL (1.8-2.4); POTASSIUM 3.2 mmol/L (3.5-5.1); TOTAL BILIRUBIN 1.4 mg/dL (<0.1-1.0)
--- NOTE | 2018-11-04 06:39 | NUR ---
PATIENT SLEPT PART OF THE NIGHT. IV REMAINS SALINE LOCKED. PATIENT WAS GIVEN ATIVAN SCHEDULED. POTASSIUM AND MAG WERE LOW THIS MORNING REPLACED PER PROTOCOL. PATIENT IS POSSIBLY GOING HOME TODAY. WILL CONTINUE TO MONITOR.
[2018-11-04 12:21] VITALS: BP 105/76
[2018-11-04 16:05] VITALS: BP 155/76
--- NOTE | 2018-11-04 17:40 | NUR ---
ASSUMED PT CARE AT 0700, PT A&O X4, VSS, CONVERSION DEVELOPER TRACING SINUS RHYTHM, RA, FULL ASSESSMENT CHARTED. TREMORS TO BUE, STEADY ON FEET, DENIES ANY PAIN OR SOA THIS SHIFT. HOURLY ROUNDING COMPLETED.
[2018-11-04 20:00] VITALS: BP 107/65
[2018-11-05] VITALS: BP 116/74
[2018-11-05 04:00] VITALS: BP 138/89
[2018-11-05 04:37] LABS: HEMATOCRIT 42.9 % (42.0-52.0); HEMOGLOBIN 14.1 gm/dL (14.0-18.0); MCH 28.5 pg (26.0-34.0); MCV 86.5 fL (80.0-100.0); RBC 4.96 mil/uL (4.50-6.00); RDW-CV 16.8 % (10.5-14.5); WBC 5.8 thou/uL (4.0-11.0)
[2018-11-05 05:00] LABS: CALCIUM 7.9 mg/dL (8.5-10.1); CREATININE 0.6 mg/dL (0.6-1.3); MAGNESIUM 1.3 mg/dL (1.8-2.4); POTASSIUM 3.7 mmol/L (3.5-5.1); TOTAL BILIRUBIN 1.1 mg/dL (<0.1-1.0); TOTAL PROTEIN 6.3 g/dL (6.4-8.2)
--- NOTE | 2018-11-05 07:38 | NUR ---
PT CARE ASSUMED AT 1930. SAT MAINTAINED IN RA. ALERT AND ORIENTED X4. CALL LIGHT WITHIN REACH AND BED IN LOW POSITION. DENIES PAIN AND SOB. HOURLY ROUNDING DONE FOR PT SAFETY.
[2018-11-05] MEDS ORDERED: PEPCID20 MG PO (11:01)
[2018-11-05] MEDS ORDERED: PRENATAL PO (11:01)
[2018-11-05 11:34] VITALS: BP 138/89
--- NOTE | 2018-11-05 12:40 | NUR ---
ASSUMED PT CARE AT 0700, PT A&O X4, VSS, JACK SPINNER TRACING SINUS RHYTHM, RA, FULL ASSESSMENT CHARTED. PT UP AD CARTER IN HALLWAYS, STEADY ON FEET. EDUCATED ON ALCOHOL WITHDRAWAL AND RESOURCES AVAILABLE. PT DISCHARGED AT APPROX 1235, JACK SPINNER AND IV REMOVED, HOURLY ROUNDING COMPLETED.
== END 2018-11-05 12:35 | disposition home or self-care (01) | DRG 897 ==
LOC: M.ERS 05:30 → M.ICU 06:55 → M.TBA-ER 06:55 → M.ICU 10:56 → M.2W 11-02 13:19
PROVIDERS: Emergency Medicine; Internal Medicine; ADMIT Family Medicine
DX: F10.230 Alcohol dependence with withdrawal, uncomplicated (principal); F41.9 Anxiety disorder, unspecified; F32.9 Major depressive disorder, single episode, unspecified; M10.9 Gout, unspecified; K21.9 Gastro-esophageal reflux disease without esophagitis; R51 Headache; R56.9 Unspecified convulsions; K76.0 Fatty (change of) liver, not elsewhere classified; F17.210 Nicotine dependence, cigarettes, uncomplicated; Z79.899 Other long term (current) drug therapy; Z88.5 Allergy status to narcotic agent; Z80.0 Family history of malignant neoplasm of digestive organs; Z82.5 Family history of asthma and other chronic lower respiratory diseases